=== PATIENT | female | born 1965 | race Caucasian/White ===

== ENCOUNTER 2019-09-13 05:23 | Inpatient (IN) | payer OTHER ==
[2019-09-07 11:20] LABS: BASOPHILS # (AUTO) 0.1 X10'3 (0-0.2); BASOPHILS % (AUTO) 0.8 % (0-1); EOSINOPHILS # (AUTO) 0.1 X10'3 (0-0.9); EOSINOPHILS % (AUTO) 1.2 % (0-6); LYMPHOCYTES # (AUTO) 2.3 X10'3 (1.1-4.8); LYMPHOCYTES % (AUTO) 34.1 % (21-51); MEAN CORPUSCULAR HEMOGLOBIN 28.7 PG (27.0-31.0); MEAN CORPUSCULAR HGB CONC 33.6 g/dL (33.0-36.5); MEAN CORPUSCULAR VOLUME 85.2 FL (78-98); MEAN PLATELET VOLUME 8.1 FL (7.4-10.4); MONOCYTES # (AUTO) 0.6 X10'3 (0-0.9); MONOCYTES % (AUTO) 9.1 % (2-12); NEUTROPHILS # (AUTO) 3.7 X10'3 (1.8-7.7); NEUTROPHILS % (AUTO) 54.8 % (42-75); PRE OP HEMATOCRIT 45.1 % (35.0-45.0); PRE OP HEMOGLOBIN 15.2 g/dL (12.0-16.0); PRE OP PLATELET COUNT 315 X10'3 (140-440); RED BLOOD COUNT 5.29 X10'6 (4.20-5.60); RED CELL DISTRIBUTION WIDTH 14.6 % (11.5-14.5)
[2019-09-07 11:33] LABS: ALBUMIN 3.9 G/DL (3.4-5.0); ALBUMIN/GLOBULIN RATIO 0.9 (1.1-1.5); ALKALINE PHOSPHATASE 86 IU/L (46-116); BLOOD UREA NITROGEN 16 MG/DL (7-18); CALCIUM 9.8 MG/DL (8.5-10.1); CHLORIDE 99 MMOL/L (99-107); PRE OP ALT 27 U/L (30-65); PRE OP ANION GAP 8 (8-16); PRE OP AST 25 U/L (10-37); PRE OP BILIRUB, TOTAL 0.5 MG/DL (0.0-1.0); PRE OP GLUCOSE 106 MG/DL (70-104); PRE OP POTASSIUM 4.1 MMOL/L (3.4-5.1); PRE OP SODIUM 135 MMOL/L (135-145); TOTAL CARBON DIOXIDE 28.5 MMOL/L (24-32); TOTAL PROTEIN 8.3 G/DL (6.4-8.2); eGFR 75 ML/MIN
[~2019-09-13] VITALS: Ht 172.7 cm; Wt 125.6 kg
[2019-09-13] VITALS (18 sets, daily range): BP systolic 112–184; BP diastolic 74–115
[~2019-09-13 05:23] MED LIST: CHLO25TA2 PO; CYCL5TAB PO; SUMA5SPR2; ringers solution, lacted 1,000 ML IV SCH
[2019-09-13] MEDS ORDERED: famotidine 20mg tablet PO ONE (05:30)
[2019-09-13] MEDS ORDERED: ceFAZolin 1GM/D5W- ADD-VANTAGE 50 ML IV ONE (05:30)
[2019-09-13] MEDS ORDERED: tranexamic acid inj. 1,000 MG in normal saline 100 ML IV ONE (05:30)
[2019-09-13] MEDS ORDERED: vancomycin inj 1,500 MG in normal saline 300ml IV soln IV ONE (05:30)
[2019-09-13] MEDS ORDERED: cefazolin/dext.iso 2gm/50ml 50 ML IV ONE (05:30)
[2019-09-13] MEDS ORDERED: LIDOcaine 1% (10mg/ml) 2ml vial ONE (05:45)
[2019-09-13] MEDS ORDERED: epiNEPHrine 1 mg/ml inj ONE (06:45)
[2019-09-13] MEDS ORDERED: ketorolac trometh. 30mg/ml inj. ONE (06:45)
[2019-09-13] MEDS ORDERED: morphine 10mg/ml inj. ONE (06:46)
[2019-09-13] MEDS ORDERED: ceFAZolin 1000mg inj ONE (06:46)
[2019-09-13] MEDS ORDERED: vancomycin 1,000mg inj ONE (06:46)
[2019-09-13] MEDS ORDERED: ROPIVAcaine 0.5% (5mg/ml) 30ml vial ONE ×2 (06:46→08:56)
[2019-09-13] MEDS ORDERED: MIDAZolam 5mg/5ml vial ONE (07:20)
[2019-09-13] MEDS ORDERED: fentaNYL /PF 50mcg/ml 5ml ampule ONE (07:20)
[2019-09-13] MEDS ORDERED: dexamethasone sod phosphate 4mg/ml inj. ONE (07:22)
[2019-09-13] MEDS ORDERED: rocuronium 10mg/ml inj IV ONE (07:22)
[2019-09-13] MEDS ORDERED: ondansetron/PF 4mg/2ml inj ONE (07:22)
[2019-09-13] MEDS ORDERED: LIDOcaine 2% (20mg/ml) 5ml vial ONE (07:22)
[2019-09-13] MEDS ORDERED: labetalol 20mg/4ml (5mg/ml) syringe IV PRN (07:25)
[2019-09-13] MEDS ORDERED: ringers solution, lacted 1,000 ML IV SCH (07:25)
[2019-09-13] MEDS ORDERED: hydrALAZINE 20mg/ml inj. IV PRN (07:25)
[2019-09-13] MEDS ORDERED: morphine 4 MG/ML inj SYRINge IV PRN (07:25)
[2019-09-13] MEDS ORDERED: fentaNYL/PF 50MCG/1 ML 2ML syringe IV PRN (07:25)
[2019-09-13] MEDS ORDERED: ondansetron/PF 4mg/2ml inj IV PRN ×2 (07:25→10:30)
[2019-09-13] MEDS ORDERED: sevoflurane 250ml liquid IH ONE (07:45)
[2019-09-13] MEDS ORDERED: ROPIVAcaine 0.2%/PF PUMP/bolus 550 ML ADDCANAL SCH (08:30)
[2019-09-13] MEDS ORDERED: Thrombin (Bovine) 5,000 unit vial TP ONE (08:31)
[2019-09-13] MEDS ORDERED: calcium chloride 100 MG/1 ML inj IV ONE (08:33)
[2019-09-13] MEDS ORDERED: labetalol 20mg/4ml (5mg/ml) syringe IV ONE (08:34)
[2019-09-13] MEDS ORDERED: HYDROmorphone inj. 0.5 MG/0.5 ML DISP.SYRIN IV PRN (10:30)
[2019-09-13] MEDS ORDERED: acetaminophen 325mg tablet PO PRN (10:30)
[2019-09-13] MEDS ORDERED: HYDROmorphone 1 mg/ml syringe IV PRN (10:30)
[2019-09-13] MEDS ORDERED: diphenhydrAMINE 25mg capsule PO PRN ×2 (10:30)
[2019-09-13] MEDS ORDERED: bisacodyl 10mg suppository rectal RC PRN (10:30)
[2019-09-13] MEDS ORDERED: oxyCODONE IR 5mg (immed. release) tablet PO PRN (10:30)
[2019-09-13] MEDS ORDERED: magnesium hydroxide 30ml (MOM) UD suspension PO PRN (10:30)
[2019-09-13] MEDS ORDERED: propofol inj 20 ML IV ONE (10:44)
--- NOTE | 2019-09-13 10:52 | NUR ---
Received from OR via frank, accompanied by Anesthesiologist Hermann and report given by Anesthesiolgist. Pt alert and responsive, BP slightly elevated, pt states pain 7/10, MD states he medicated with hypertension meds in surgery. He states to give pain medication not hypertain meds, will medicate appropriately for her pain level. Otherwise VS stable with mask to 10L and sats 98%. 20G left forearm with LR IVF 100cc/hr and left knee wrapped with arnulfo dressing and ON-Q line present. Cold pack in the wrap. Pulse palpable to bilateral doralis pedis. SCd's on right leg and shahid cath draining yellow fluid.
[2019-09-13] MEDS: morphine 4 MG/ML inj SYRINge IV PRN ×2 (10:57→11:17)
[2019-09-13] MEDS: fentaNYL/PF 50MCG/1 ML 2ML syringe IV PRN ×2 (11:28→11:41)
--- NOTE | 2019-09-13 11:35 | NUR ---
Patient in room PAS IN 900. I have received report from Mary in recovery and had the opportunity to ask questions and assume patient care.
--- NOTE | 2019-09-13 12:02 | NUR ---
Report called to receiving nurse. Transferred via ortho trapeze bed. Belongings sent with patient on bed. Special Issues communicated to receiving nurse KATHRINE Mesa. Post op VS remain stable, pt remains alert and oriented. Tele 19 placed on patient including clean gown. Quintanilla emptied prior to transfer with 500cc urine, SCDs remain on both legs. BEVELER Wendy Juarez at bedside to assess, increases ON-Q to 12, this was relayed to Bonita CHISHOLM. BLL, call light within reach. Pt states she is comfortable.
[2019-09-13] MEDS ORDERED: tranexamic acid inj. 1,300 MG in normal saline 100ml IV soln 100 ML IV ONE (14:00)
[2019-09-13] MEDS: oxyCODONE IR 5mg (immed. release) tablet PO PRN ×3 (14:02→22:05)
[2019-09-13] MEDS: acetaminophen 325mg tablet PO SCH ×2 (14:03→20:56)
[2019-09-13] MEDS: gabapentin 300mg capsule PO SCH ×2 (14:03→20:56)
[2019-09-13] MEDS: potassium cl 20mEq in 1/2 NS 1,000 ML IV SCH ×2 (15:15→23:26)
[2019-09-13] MEDS: ceFAZolin 1GM/D5W- ADD-VANTAGE 50 ML IV SCH ×2 (16:28→23:26)
--- NOTE | 2019-09-13 18:27 | NUR ---
Problems reprioritized. Patient report given, questions answered & plan of care reviewed with Marilia.
[2019-09-13] MEDS ORDERED: cyclobenzaprine 10mg tablet PO SCH (19:45)
[2019-09-13] MEDS ORDERED: SUMAtriptan 5 mg Nasal Spray PO PRN (19:45)
--- NOTE | 2019-09-13 19:46 | NUR ---
Patient in room ORTHO 4007. I have received report from day shift nurse and had the opportunity to ask questions and assume patient care.
[2019-09-13] MEDS ORDERED: vancomycin/NS 1 GM ADD-VANTAGE 250 ML IV SCH (20:00)
[2019-09-13] MEDS: sennosides 8.6mg tablet PO SCH (20:57)
[2019-09-14 02:00] VITALS: BP 117/71
[2019-09-14] MEDS: acetaminophen 325mg tablet PO SCH ×4 (02:01→19:56)
[2019-09-14] MEDS: oxyCODONE IR 5mg (immed. release) tablet PO PRN ×6 (02:02→22:47)
--- NOTE | 2019-09-14 05:35 | NUR ---
Quintanilla cath removed at this time for order to remove post op day 1. No issues. Will continue to monitor for patient voiding.
--- NOTE | 2019-09-14 05:35 | NUR ---
Patient still having some pain to left knee incision site so OnQ increased from 12 to 14.
[2019-09-14] MEDS: potassium cl 20mEq in 1/2 NS 1,000 ML IV SCH ×3 (05:55→15:58)
[2019-09-14 06:00] VITALS: BP 93/56
--- NOTE | 2019-09-14 06:21 | NUR ---
Problems reprioritized. Patient report given, questions answered & plan of care reviewed with Norman CHISHOLM.
--- NOTE | 2019-09-14 06:49 | NUR ---
Patient in room ORTHO 4007. I have received report from Marilia CHISHOLM and had the opportunity to ask questions and assume patient care.
[2019-09-14 06:50] LABS: BASOPHILS % (AUTO) 0.4 % (0-1); EOSINOPHILS % (AUTO) 0.1 % (0-6); HEMATOCRIT 40.1 % (35.0-45.0); HEMOGLOBIN 13.1 g/dl (12.0-16.0); LYMPHOCYTES # (AUTO) 1.8 X10'3 (1.1-4.8); MEAN CORPUSCULAR HEMOGLOBIN 28.3 PG (27.0-31.0); MEAN CORPUSCULAR HGB CONC 32.7 g/dL (33.0-36.5); MEAN CORPUSCULAR VOLUME 86.4 FL (78-98); MEAN PLATELET VOLUME 7.9 FL (7.4-10.4); MONOCYTES # (AUTO) 1.2 X10'3 (0-0.9); MONOCYTES % (AUTO) 9.4 % (2-12); NEUTROPHILS # (AUTO) 9.7 X10'3 (1.8-7.7); NEUTROPHILS % (AUTO) 76.1 % (42-75); PLATELET COUNT 274 X10'3 (140-440); RED BLOOD COUNT 4.64 X10'6 (4.20-5.60); RED CELL DISTRIBUTION WIDTH 14.4 % (11.5-14.5); WHITE BLOOD COUNT 12.7 X10'3 (4.5-11.0)
[2019-09-14 07:09] LABS: ANION GAP 9 (8-16); CHLORIDE 102 MMOL/L (99-107); POTASSIUM 3.3 MMOL/L (3.5-5.1); SODIUM 139 MMOL/L (135-145); TOTAL CARBON DIOXIDE 27.9 MMOL/L (24-32)
[2019-09-14] MEDS: chlorthalidone 25mg tablet PO SCH (07:47)
[2019-09-14] MEDS: gabapentin 300mg capsule PO SCH ×3 (07:48→19:55)
[2019-09-14] MEDS: enoxaparin 30mg/0.3ml syringe SQ SCH (07:54)
[2019-09-14] MEDS ORDERED: potassium Cl 20 mEq SR tablet PO PRN (08:15)
[2019-09-14] MEDS: potassium Cl 20 mEq SR tablet PO PRN ×3 (09:02→17:41)
[2019-09-14 10:00] VITALS: BP 129/78
--- NOTE | 2019-09-14 12:08 | NUR ---
gave report to Norman
[2019-09-14 13:30] VITALS: BP 146/83
[2019-09-14 18:00] VITALS: BP 130/77
--- NOTE | 2019-09-14 18:10 | NUR ---
Problems reprioritized. Patient report given, questions answered & plan of care reviewed with Michael CHISHOLM.
--- NOTE | 2019-09-14 19:00 | NUR ---
Patient in room ORTHO 4007. I have received report from Norman CHISHOLM and had the opportunity to ask questions and assume patient care.
[2019-09-14] MEDS: sennosides 8.6mg tablet PO SCH (19:55)
[2019-09-14] MEDS: celeCOXIB 100mg capsule PO SCH (19:57)
[2019-09-14 22:00] VITALS: BP 131/84
[2019-09-15] MEDS: potassium cl 20mEq in 1/2 NS 1,000 ML IV SCH (02:30)
[2019-09-15] MEDS: oxyCODONE IR 5mg (immed. release) tablet PO PRN ×3 (02:54→12:37)
[2019-09-15] MEDS: acetaminophen 325mg tablet PO SCH ×2 (02:55→07:15)
[2019-09-15 05:45] LABS: BASOPHILS # (AUTO) 0.1 X10'3 (0-0.2); BASOPHILS % (AUTO) 0.9 % (0-1); EOSINOPHILS # (AUTO) 0.1 X10'3 (0-0.9); EOSINOPHILS % (AUTO) 0.9 % (0-6); HEMATOCRIT 36.6 % (35.0-45.0); HEMOGLOBIN 12.5 g/dl (12.0-16.0); LYMPHOCYTES # (AUTO) 2.6 X10'3 (1.1-4.8); LYMPHOCYTES % (AUTO) 29.2 % (21-51); MEAN CORPUSCULAR HEMOGLOBIN 28.8 PG (27.0-31.0); MEAN CORPUSCULAR HGB CONC 34.2 g/dL (33.0-36.5); MEAN CORPUSCULAR VOLUME 84.2 FL (78-98); MEAN PLATELET VOLUME 8.3 FL (7.4-10.4); MONOCYTES % (AUTO) 10.9 % (2-12); NEUTROPHILS # (AUTO) 5.1 X10'3 (1.8-7.7); NEUTROPHILS % (AUTO) 58.1 % (42-75); PLATELET COUNT 261 X10'3 (140-440); RED BLOOD COUNT 4.34 X10'6 (4.20-5.60); RED CELL DISTRIBUTION WIDTH 14.6 % (11.5-14.5); WHITE BLOOD COUNT 8.8 X10'3 (4.5-11.0)
[2019-09-15 06:00] VITALS: BP 163/93
--- NOTE | 2019-09-15 06:29 | NUR ---
Patient in room ORTHO 4007. I have received report from Michael CHISHOLM and had the opportunity to ask questions and assume patient care.
[2019-09-15] MEDS: gabapentin 300mg capsule PO SCH ×2 (07:15→12:37)
[2019-09-15] MEDS: chlorthalidone 25mg tablet PO SCH (07:15)
[2019-09-15] MEDS: celeCOXIB 100mg capsule PO SCH (07:15)
[2019-09-15] MEDS: enoxaparin 30mg/0.3ml syringe SQ SCH (07:16)
[2019-09-15] MEDS ORDERED: ROPIVAcaine 0.2%/PF PUMP/bolus 550 ML ADDCANAL SCH (07:51)
[2019-09-15] MEDS ORDERED: ROPIVAcaine 0.2% (10 MG/5 ML) BOLUS INJECTION ADDCANAL PRN (08:40)
[2019-09-15] MEDS ORDERED: ROPIVAcaine 0.2% (10 MG/5 ML) BOLUS INJECTION INTERSCALE PRN (08:40)
[2019-09-15 10:00] VITALS: BP 139/109
[2019-09-15] MEDS ORDERED: acetaminophen 325mg tablet PO PRN (10:30)
--- NOTE | 2019-09-15 12:58 | NUR ---
Safe discharge with friend in personal vehicle. all personal items with patient.
== END 2019-09-15 12:50 | disposition home or self-care (01) | DRG 470 ==
LOC: PAS IN 05:23 → EDSTATUS 07:30 → ORTHO 4S 12:05
PROVIDERS: ADMIT Orthopaedic Surgery; ATTEND Orthopaedic Surgery
PROC: 3E0T3BZ Introduction of Anesthetic Agent into Peripheral Nerves and Plexi, Percutaneous Approach (ICD-10-PCS; 2019-09-13)
PROC: 0SRD0J9 Replacement of Left Knee Joint with Synthetic Substitute, Cemented, Open Approach (ICD-10-PCS; principal; 2019-09-13 07:45)
DX: M17.12 Unilateral primary osteoarthritis, left knee (principal); M25.562 Pain in left knee; I10 Essential (primary) hypertension; G43.909 Migraine, unspecified, not intractable, without status migrainosus
CPT/HCPCS: 36415; 80051; 80053; 82948; 84132; 85025; 87081; 93005; 97110; 97116; 97161; 97530; A4215; A4618; A6454; A7000; C1713; C1758; C1776; G0378; J0171; J0690; J1100; J1170; J1650; J1885; J2001; J2250; J2270; J2405; J2704; J2795; J3010; J3370; J3480; J3490; J7120